=== PATIENT | female | born 1990 | race Caucasian/White ===

== ENCOUNTER → 2017-04-26 | Outpatient (CLI) | payer OTHER | LOC: COL.RAD 04-23 09:45 | DX: O99.612 Diseases of the digestive system complicating pregnancy, second trimester (principal); K80.20 Calculus of gallbladder without cholecystitis without obstruction; K82.8 Other specified diseases of gallbladder; Z3A.23 23 weeks gestation of pregnancy ==

== ENCOUNTER 2017-08-20 08:11 | Inpatient (IN) | payer OTHER ==
[~2017-08-20] VITALS: Ht 160 cm; Wt 84.1 kg
[2017-08-20] VITALS (36 sets, daily range): BP systolic 99–127; BP diastolic 55–78; PULSE 57–125; TEMP 97.5–98.8
[2017-08-20] MEDS ORDERED: ZANTAC 150MG T150 MG PO (08:44)
[2017-08-20] MEDS ORDERED: PROFERRIN ES12 MG PO (08:44)
[2017-08-20] MEDS ORDERED: PRENATAL1 TA7 PO (08:45)
[2017-08-20 12:46] LABS: BASO % 0.2 % (0.0-2.0); EOS % 0.2 % (0-4.0); GRAN # 8.6 (1.4-6.5); GRAN % 79.1 % (42.2-75.2); HEMOGLOBIN 11.3 g/dl (12.5-16.0); LYMPH # 1.7 (1.2-3.4); LYMPH % 15.7 % (20.0-51.0); MEAN CELL VOLUME 85 fl (80.0-100.0); MEAN CORPUSCULAR HEMOGLOBIN 29 pg (27.0-31.0); MEAN CORPUSCULAR HGB CONC 34 g/dl (33.0-37.0); MEAN PLATELET VOLUME 10.6 fl (7.4-10.4); MONO # 0.4 (0.1-0.6); PLATELET COUNT 195 K/mm3 (130-400); RED BLOOD COUNT 3.92 M/mm3 (4.10-5.30); REDCELL DISTRIBUTION WIDTH-CV 15.8 % (11.5-14.5)
[2017-08-20 12:50] LABS: HEMATOCRIT 33.3 % (37.0-47.0)
[2017-08-21] VITALS (7 sets, daily range): BP systolic 106–121; BP diastolic 58–80; PULSE 60–79; TEMP 97.6–98.2
[2017-08-21 08:23] LABS: BASO % 0.3 % (0.0-2.0); EOS % 0.1 % (0-4.0); GRAN # 8.4 (1.4-6.5); GRAN % 81.6 % (42.2-75.2); LYMPH # 1.2 (1.2-3.4); LYMPH % 11.8 % (20.0-51.0); MEAN CELL VOLUME 88 fl (80.0-100.0); MEAN CORPUSCULAR HGB CONC 32 g/dl (33.0-37.0); MEAN PLATELET VOLUME 10.9 fl (7.4-10.4); MONO # 0.6 (0.1-0.6); MONO % 5.7 % (1.7-9.3); PLATELET COUNT 172 K/mm3 (130-400); RED BLOOD COUNT 3.17 M/mm3 (4.10-5.30); REDCELL DISTRIBUTION WIDTH-CV 15.7 % (11.5-14.5)
[2017-08-21 08:33] LABS: HEMATOCRIT 27.9 % (37.0-47.0); MEAN CORPUSCULAR HEMOGLOBIN 28 pg (27.0-31.0)
[2017-08-21] MEDS ORDERED: IBU600 MG PO (11:22)
[2017-08-21] MEDS ORDERED: PERCOCET 325 MG1 TA2 PO (11:22)
[2017-08-22 09:35] VITALS: BP 118/74; PULSE 91; TEMP 98.4
== END 2017-08-22 16:20 | disposition home or self-care (01) | DRG 765 ==
LOC: LDRO 08:11 → LDR 11:49 → OB 23:00
PROVIDERS: Obstetrics & Gynecology
PROC: 10D00Z1 Extraction of Products of Conception, Low, Open Approach (ICD-10-PCS; principal; 2017-08-20)
PROC: 0UT50ZZ Resection of Right Fallopian Tube, Open Approach (ICD-10-PCS; 2017-08-20)
PROC: 0UT00ZZ Resection of Right Ovary, Open Approach (ICD-10-PCS; 2017-08-20)
DX: O64.8XX0 Obstructed labor due to other malposition and malpresentation, not applicable or unspecified (principal); O36.0930 Maternal care for other rhesus isoimmunization, third trimester, not applicable or unspecified; D62 Acute posthemorrhagic anemia; O34.211 Maternal care for low transverse scar from previous cesarean delivery; Z3A.40 40 weeks gestation of pregnancy; Z37.0 Single live birth; O36.63X0 Maternal care for excessive fetal growth, third trimester, not applicable or unspecified; O34.83 Maternal care for other abnormalities of pelvic organs, third trimester; N83.201 Unspecified ovarian cyst, right side; O99.02 Anemia complicating childbirth; O99.62 Diseases of the digestive system complicating childbirth; K80.20 Calculus of gallbladder without cholecystitis without obstruction; O77.0 Labor and delivery complicated by meconium in amniotic fluid
CPT/HCPCS: J0171; J0690; J1885; J2270; J2405; J2590; J2704; J2791; J3010; J7120

== ENCOUNTER 2017-08-31 08:34 | Observation (INO) | payer OTHER ==
[~2017-08-31] VITALS: Ht 160 cm; Wt 79.4 kg
[~2017-08-31 08:34] MED LIST: IBU600 MG PO; PERCOCET 325 MG1 TA2 PO; PRENATAL1 TA7 PO; PROFERRIN ES12 MG PO; ZANTAC 150MG T150 MG PO
[2017-08-31 08:57] LABS: COLLECTION METHOD CLEAN CATCH
[2017-08-31 09:01] LABS: BASO % 0.2 % (0.0-2.0); EOS % 0.3 % (0-4.0); GRAN # 7.4 (1.4-6.5); GRAN % 83.9 % (42.2-75.2); HEMOGLOBIN 11.3 g/dl (12.5-16.0); LYMPH # 1.1 (1.2-3.4); LYMPH % 11.9 % (20.0-51.0); MEAN CELL VOLUME 89 fl (80.0-100.0); MEAN CORPUSCULAR HEMOGLOBIN 28 pg (27.0-31.0); MEAN CORPUSCULAR HGB CONC 32 g/dl (33.0-37.0); MEAN PLATELET VOLUME 9.4 fl (7.4-10.4); MONO # 0.3 (0.1-0.6); MONO % 3.2 % (1.7-9.3); PLATELET COUNT 351 K/mm3 (130-400); RED BLOOD COUNT 3.98 M/mm3 (4.10-5.30); REDCELL DISTRIBUTION WIDTH-CV 15.1 % (11.5-14.5)
[2017-08-31 09:02] LABS: HEMATOCRIT 35.3 % (37.0-47.0)
[2017-08-31 09:03] LABS: MUCOUS Present /lpf; PH 7 (5-8); SQUAMOUS EPITHELIAL None Seen /hpf; URINE APPEARANCE Clear; URINE BACTERIA None Seen /hpf; URINE BILIRUBIN Negative (NEGATIVE); URINE BLOOD Negative (NEGATIVE); URINE COLOR Yellow; URINE GLUCOSE Negative (NEGATIVE); URINE KETONE Negative (NEGATIVE); URINE LEUKOCYTE ESTERASE Negative (NEGATIVE); URINE NITRATE Negative (NEGATIVE); URINE PROTEIN(semi-quant) Negative (NEGATIVE); URINE RBC 0-2 /hpf; URINE UROBILINOGEN Negative (NEGATIVE)
[2017-08-31 09:11] LABS: ALBUMIN 4.1 gm/dL (3.5-5.0); BILIRUBIN,TOTAL 0.7 mg/dL (0.0-1.0); C-REACTIVE PROTEIN 1.4 mg/dL (0.0-0.9); CALCIUM 8.9 mg/dL (8.4-10.2); CREATININE, serum 0.73 mg/dL (0.52-1.25); TOTAL PROTEIN 7.3 gm/dL (6.4-8.2)
[2017-08-31 11:41] VITALS: BP 109/78; PULSE 56; TEMP 98.2
[2017-08-31 18:45] VITALS: BP 113/74; PULSE 54
[2017-08-31 19:00] VITALS: BP 113/71; PULSE 54
[2017-08-31 19:30] VITALS: BP 120/82; PULSE 67
[2017-08-31 20:00] VITALS: BP 131/78; PULSE 70
[2017-08-31 21:00] VITALS: BP 120/68; PULSE 65
[2017-09-01] VITALS (13 sets, daily range): BP systolic 99–127; BP diastolic 55–83; PULSE 52–76; TEMP 98.1–98.8
[2017-09-01 06:57] LABS: ALBUMIN 3.2 gm/dL (3.5-5.0); BILIRUBIN,TOTAL 1.8 mg/dL (0.0-1.0); CALCIUM 8.2 mg/dL (8.4-10.2); CREATININE, serum 0.8 mg/dL (0.52-1.25); POTASSIUM 3.7 mmol/L (3.4-5.0); TOTAL PROTEIN 5.9 gm/dL (6.4-8.2)
[2017-09-02 00:15] VITALS: BP 106/71; PULSE 62; TEMP 98.5
[2017-09-02 03:17] VITALS: BP 104/58; PULSE 63; TEMP 98.6
[2017-09-02 08:39] VITALS: BP 107/70; PULSE 69; TEMP 97.4
== END 2017-09-02 09:59 | disposition home or self-care (01) ==
LOC: COL.ER 08:34 → SURG 10:41 → SDCO 10:41 → SURG 09-01 13:20
PROVIDERS: Emergency Medicine; Surgery
DX: O99.63 Diseases of the digestive system complicating the puerperium (principal); K80.66 Calculus of gallbladder and bile duct with acute and chronic cholecystitis without obstruction; O26.63 Liver and biliary tract disorders in the puerperium; O90.81 Anemia of the puerperium
CPT/HCPCS: OP; C1769; G0378; J0690; J1100; J1170; J1885; J1956; J2250; J2405; J2543; J2550; J2704; J3010; J7030; J7120; Q9967

== ENCOUNTER 2017-12-18 12:32 | Emergency (ER) | payer OTHER ==
[~2017-12-18] VITALS: Ht 160 cm; Wt 70.5 kg
[2017-12-18 13:00] VITALS: BP 111/62; PULSE 78; TEMP 98.4
[2017-12-18 13:11] LABS: COLLECTION METHOD CLEAN CATCH
[2017-12-18 13:33] LABS: MUCOUS Present /lpf; PH 6 (5-8); SQUAMOUS EPITHELIAL 0-2 /hpf; URINE APPEARANCE Clear; URINE BACTERIA None Seen /hpf; URINE BILIRUBIN Negative (NEGATIVE); URINE BLOOD Negative (NEGATIVE); URINE COLOR Straw; URINE GLUCOSE Negative (NEGATIVE); URINE KETONE Negative (NEGATIVE); URINE LEUKOCYTE ESTERASE Negative (NEGATIVE); URINE NITRATE Negative (NEGATIVE); URINE PROTEIN(semi-quant) Negative (NEGATIVE); URINE RBC 0-2 /hpf; URINE UROBILINOGEN Negative (NEGATIVE)
== END 2017-12-18 13:33 | disposition left against medical advice (07) ==
LOC: COL.ER 12:32
PROVIDERS: Emergency Medicine
DX: R10.9 Unspecified abdominal pain (principal)